=== PATIENT | male | born 1955 | race Caucasian/White ===

== ENCOUNTER 2022-06-16 13:36 | Emergency (ER) | payer MEDICARE, MEDICAID, SELFPAY ==
[2022-06-16] VITALS (9 sets, daily range): BP systolic 113–123; BP diastolic 68–76; PULSE 86–94; RESP 18–20; TEMP 36.6; O2SAT 96–99
--- NOTE | 2022-06-16 13:54 | DI.RAD.S_ITS ---
PROCEDURE: XR CHEST 2V INDICATIONS: Short of breath/wheezing TECHNIQUE: 2 views of the chest were acquired. COMPARISON: None. FINDINGS: Surgical changes and devices: None. Lungs and pleura: Lungs are clear. No pleural effusions or pneumothorax. Mediastinum: The cardiac contours are within normal limits. The aorta demonstrates calcification and tortuosity. Bones and chest wall: No suspicious bony abnormalities. Soft tissues appear unremarkable. IMPRESSION: Plain film study within normal limits for age. No focal infiltrates are seen. Dictated by: Олег Cota M.D. on 06/16/2022 at 13:26 Approved by: Олег Cota M.D. on 06/16/2022 at 13:27
--- NOTE | 2022-06-16 14:06 | ED_ITS ---
HPI - SOB/Dyspnea <ARMIN Espinosa - Last Filed: 06/16/22 18:14> General Chief Complaint: Shortness of Breath/Dyspnea Stated Complaint: Cough, body aches, wheezing Time Seen by Provider: 06/16/22 13:53 Source: family Mode of arrival: Family Vehicle Limitations: other History of Present Illness HPI Narrative: This is a 67-year-old male who presents to the emergency department complaining of cough, body aches, wheezing for the last 2 days and is concerned for illness. He denies any nausea or vomiting. He states that he feels hot and cold but denies measured fever. Patient is a smoker states that he feels like he is wheezing and having worsening body aches. Denies taking a COVID test yet. Denies history of COPD or wheezing. Denies any nausea vomiting, chills, changes to his urine or his stool. Related Data Previous Rx's Medication Instructions Recorded albuterol sulfate 90 mcg/actuation 1 inh inhalation Q6H PRN shortness 06/16/22 aerosol inhaler of breath or wheezing #6.7 grams Allergies Allergy/AdvReac Type Severity Reaction Status Date / Time No Known Drug Allergies Allergy Verified 04/12/20 15:40 Review of Systems <ARMIN Espinosa - Last Filed: 06/16/22 18:14> Review of Systems Narrative: Review of systems is negative for acute abnormalities unless otherwise noted in HPI Patient History <ARMIN Espinosa - Last Filed: 06/16/22 18:14> Medical History (Updated 06/16/22 @ 15:48 by ARMIN Espinosa) Basal cell carcinoma (BCC) of brow History of developmental delay (~195) Family History Father Diabetes mellitus History of heart disease Stroke Hyperlipidemia Hypertension Mother Diabetes mellitus History of heart disease Hyperlipidemia Hypertension Stroke Social History Smoking Status: Current every day smoker Smoking Status: Current every day smoker alcohol intake frequency: 0-2 drinks per day Substance Use Type: does not use Exam <ARMIN Espinosa - Last Filed: 06/16/22 18:14> Narrative Exam Narrative: Reviewed vitals signs and nursing notes. General: cooperative, comfortable, in no acute distress, well groomed HEENT: symmetrical facial expressions, moist mucous membranes Cardiovascular: regular rate and rhythm, no peripheral edema, warm extremities Respiratory: normal effort, dry cough, sounds hoarse, intermittent wheeze left lower lobe able to speak in complete sentences, without wheezing, stridor, or abnormal breath sounds. No retractions or tachypnea. GI: abdomen soft, nontender to palpation, nondistended, without masses, rebound tenderness or exquisite tenderness with exam. No CVA tenderness MSK: moves all extremities, neurovascularly intact, no weakness, normal tone Skin: brisk capillary refill, without pallor or erythema Neuro: normal speech and cognition, A&O x3, ambulatory, clear speech Psych: mental status is grossly normal, congruent mood, normal affect, pleasant and cooperative Initial Vital Signs Initial Vital Signs: Vital Signs Pulse Rate 91 H 06/16/22 13:44 Blood Pressure 123/76 06/16/22 13:44 Pulse Oximetry 99 06/16/22 13:44 Oxygen Delivery Method 06/16/22 13:44 <Levar Finn DO - Last Filed: 06/16/22 18:18> Initial Vital Signs Initial Vital Signs: Vital Signs Pulse Rate 91 H 06/16/22 13:44 Blood Pressure 123/76 06/16/22 13:44 Pulse Oximetry 99 06/16/22 13:44 Oxygen Delivery Method 06/16/22 13:44 Course <ARMIN Espinosa - Last Filed: 06/16/22 18:14> Orders Ordered: ED Orders 06/16/22 13:54 Chest [XR chest 2V] Stat RT Consult Eval and Treat NOW 06/16/22 14:10 Covid-19 + FLU A/B + RSV - PCR Stat 06/16/22 16:07 Urine Microscopic Stat Discontinued Medications Albuterol (Albuterol Hfa Prepack) 1 box MISC SEEINSTR ONE Stop: 06/16/22 15:49 Last Admin: 06/16/22 16:18 Dose: 1 box Documented By: WILNER Albuterol/Ipratropium (Albuterol/Ipratropium 3 Ml Ampul) 3 ml INH NOW ONE Stop: 06/16/22 14:14 Last Admin: 06/16/22 14:19 Dose: 3 ml Documented By: WILNER Vital Signs Vital signs: Vital Signs - 8 hr 06/16/22 13:51 06/16/22 14:19 06/16/22 13:44 Temperature 97.9 F Pulse Rate 90 92 H Respiratory Rate 20 18 Blood Pressure 123/76 123/76 Pulse Oximetry 99 96 Oxygen Delivery Method Room Air Room Air 06/16/22 13:44 06/16/22 14:00 06/16/22 14:30 Temperature Pulse Rate 91 H 91 H 90 Respiratory Rate Blood Pressure Pulse Oximetry 99 98 97 Oxygen Delivery Method Room Air Room Air Room Air 06/16/22 15:00 06/16/22 15:30 06/16/22 16:00 Temperature Pulse Rate 89 86 94 H Respiratory Rate 20 Blood Pressure Pulse Oximetry 97 96 97 Oxygen Delivery Method Room Air Room Air Room Air 06/16/22 16:21 Temperature Pulse Rate Respiratory Rate Blood Pressure 113/68 Pulse Oximetry Oxygen Delivery Method <Levar Finn DO - Last Filed: 06/16/22 18:18> Orders Ordered: ED Orders 06/16/22 13:54 Chest [XR chest 2V] Stat RT Consult Eval and Treat NOW 06/16/22 14:10 Covid-19 + FLU A/B + RSV - PCR Stat 06/16/22 16:07 Urine Microscopic Stat Discontinued Medications Albuterol (Albuterol Hfa Prepack) 1 box MISC SEEINSTR ONE Stop: 06/16/22 15:49 Last Admin: 06/16/22 16:18 Dose: 1 box Documented By: WILNER Albuterol/Ipratropium (Albuterol/Ipratropium 3 Ml Ampul) 3 ml INH NOW ONE Stop: 06/16/22 14:14 Last Admin: 06/16/22 14:19 Dose: 3 ml Documented By: WILNER Vital Signs Vital signs: Vital Signs - 8 hr 06/16/22 13:51 06/16/22 14:19 06/16/22 13:44 Temperature 97.9 F Pulse Rate 90 92 H Respiratory Rate 20 18 Blood Pressure 123/76 123/76 Pulse Oximetry 99 96 Oxygen Delivery Method Room Air Room Air 06/16/22 13:44 06/16/22 14:00 06/16/22 14:30 Temperature Pulse Rate 91 H 91 H 90 Respiratory Rate Blood Pressure Pulse Oximetry 99 98 97 Oxygen Delivery Method Room Air Room Air Room Air 06/16/22 15:00 06/16/22 15:30 06/16/22 16:00 Temperature Pulse Rate 89 86 94 H Respiratory Rate 20 Blood Pressure Pulse Oximetry 97 96 97 Oxygen Delivery Method Room Air Room Air Room Air 06/16/22 16:21 Temperature Pulse Rate Respiratory Rate Blood Pressure 113/68 Pulse Oximetry Oxygen Delivery Method MDM - SOB/Dyspnea <Remedios Toussaint BUILD TECHNICIAN - Last Filed: 06/16/22 18:14> Lab Data Labs: Lab Results 06/16/22 06/16/22 Range/Units 14:10 16:07 Urine RBC 1-5/hpf (0-5/HPF) Urine WBC 1-5/hpf (0-5/HPF) Urine Bacteria None seen (None) Urine Mucus 1+ H (Negative) Ur Culture Indicated? Cult not indicated SARS-CoV-2 (PCR) Negative (Negative) Influenza A (RT-PCR) Flu a negative (NEGATIVE) Influenza B (RT-PCR) Flu b negative (NEGATIVE) RSV (PCR) Negative (Negative) Urine Dip Bedside Urine Glucose 100 mg/dl Bedside Urine Bilirubin - Negative Bedside Urine Ketone - Negative Urine Specific Osteen 1.020 Bedside Urine Occult Blood - Negative Bedside Urine pH 6.0 Bedside Urine Protein +/- 15 Bedside Urine Urobilinogen 2+ 4mg Bedside Urine Nitrite - Negative Bedside Urine Leukocytes - Negative Esterase Imaging Data Chest x-ray: Radiologist's Impression: PROCEDURE:? XR CHEST 2V ? INDICATIONS:? Short of breath/wheezing ? TECHNIQUE:? 2 views of the chest were acquired.? ? COMPARISON:? None. ? FINDINGS:? ? Surgical changes and devices:? None.? ? Lungs and pleura:? Lungs are clear.? No pleural effusions or pneumothorax.? ? Mediastinum:? The cardiac contours are within normal limits. The aorta demonstrates calcification and tortuosity. ? Bones and chest wall:? No suspicious bony abnormalities.? Soft tissues appear unremarkable.? IMPRESSION:? ? Plain film study within normal limits for age.? No focal infiltrates are seen. ? ? Dictated by: Олег Cota M.D. on 06/16/2022 at 13:26 ? ? Approved by: Олег Cota M.D. on 06/16/2022 at 13:27 ? [place] Narrative Medical decision making narrative: This is a 67-year-old male who presents to the emergency department with cough, wheezing, body aches, and fatigue for the last 2 days. He is a smoker, denies history of heart or lung conditions. Patient had expiratory wheeze with coughing and horse, dry cough. He was not hypoxic, did not have tachypnea or accessory muscle use. He was afebrile, breath sounds initially were clear but diminished, he had 1 nebulizer of albuterol and had improved aeration, patient states that he felt like he was breathing better afterwards. He had less coughing. He was given an MDI inhaler for his symptoms, his COVID, influenza and RSV PCR was negative. Encouraged him to continue testing if his symptoms progress. Return to the emergency department for shortness of breath, weakness, productive cough or fever and chills. Patient states understanding, discouraged smoking while feeling ill. Encouraged hydration and rest. His urine was negative for infection as well, chest x-ray does not show any focal infiltrates or acute cardiopulmonary abnormality. Patient is appropriate and amenable to discharge home. Vital signs are stable on repeat examination is unremarkable. Patient has been informed of results. Patient has been given strict return to ER precautions for any new or worsening symptoms. Patient understands to follow up closely with outpatient providers as instructed. Patient understands plan and agrees to discharge home. All questions and concerns answered at this time. <Levar Finn, DO - Last Filed: 06/16/22 18:18> Lab Data Labs: Lab Results 06/16/22 06/16/22 Range/Units 14:10 16:07 Urine RBC 1-5/hpf (0-5/HPF) Urine WBC 1-5/hpf (0-5/HPF) Urine Bacteria None seen (None) Urine Mucus 1+ H (Negative) Ur Culture Indicated? Cult not indicated SARS-CoV-2 (PCR) Negative (Negative) Influenza A (RT-PCR) Flu a negative (NEGATIVE) Influenza B (RT-PCR) Flu b negative (NEGATIVE) RSV (PCR) Negative (Negative) Urine Dip Bedside Urine Glucose 100 mg/dl Bedside Urine Bilirubin - Negative Bedside Urine Ketone - Negative Urine Specific Osteen 1.020 Bedside Urine Occult Blood - Negative Bedside Urine pH 6.0 Bedside Urine Protein +/- 15 Bedside Urine Urobilinogen 2+ 4mg Bedside Urine Nitrite - Negative Bedside Urine Leukocytes - Negative Esterase Discharge Plan Departure Patient Disposition: Home Clinical Impression: Acute upper respiratory infection Instructions: DI for Acute Bronchitis, DI for Viral Upper Respiratory Infection -- Adult Activity Restrictions/Additional Instructions: *You have been diagnosed with an upper respiratory infection causing your cough and wheeze, this is likely a viral illness but was not COVID, influenza or RSV. Please stay hydrated, drink plenty of water throughout the day, do not over exert yourself, take Tylenol and ibuprofen as needed for fever or feeling ill. Come back for any worsening of your symptoms. Use albuterol every 4 hours as needed for wheezing or shortness of breath if you find yourself using it more often than every 4 hours please come back to the emergency department for another evaluation, that means you may be getting sicker. I hope you feel better soon and I am glad that you came in today. *What to do: *Please continue to take your regular medications as directed. [x ] New medication prescriptions sent to your pharmacy: [ [facility] [ ] New medication written as a paper prescription [ ] No new medications given *Please follow up with your primary care provider in 2-3 days, call for an appointment. Let them know you were seen in the Emergency Department and that we asked that you be seen for follow-up. We will electronically transmit a record of today's note if your PCP is in our system *If you do not have a primary care provider please contact [phone] to [facility] with one of the [facility] primary care providers. *Return to Emergency Department if you should have any new, worsening, or concerning symptoms, such as [fever greater than 101F, chills, worsening pain, persistent vomiting or other bothersome symptoms]. Prescriptions: New albuterol sulfate 90 mcg/actuation HFA aerosol inhaler 1 inh inhalation Q6H PRN (Reason: shortness of breath or wheezing) Qty: 6.7 0RF Visit Report Forms: Patient Portal/API <Levar Finn DO - Last Filed: 06/16/22 18:18> [facility] Dr Finn Co-Sign Statement: I was available for consultation during this patient's emergency department visit. This chart is signed by myself for administrative purposes only. I did not have direct contact with this patient during this visit. They were seen independently by the APC.
[2022-06-16] MEDS: ALBUTEROL/IPRATROPIUM 3 ML AMPUL INH (14:19)
--- NOTE | 2022-06-16 14:47 | RT ---
Pt states better air exchange, no distress noted and on room air.
[2022-06-16 15:18] LABS: Influenza A - CEPHEID Flu A NEGATIVE (NEGATIVE); Influenza B - CEPHEID Flu B NEGATIVE (NEGATIVE); Respiratory Syncytial Virus Negative (Negative)
[2022-06-16 15:25] LABS: COVID-19 CEPHEID PCR (VTM/NP) Negative (Negative)
[2022-06-16] MEDS: ALBUTEROL HFA PREPACK 1 BOX MISC (16:18)
[2022-06-16 16:34] LABS: Bacteria Urine None Seen; Culture Indicated Urine Cult Not Indicated; Mucus Urine 1+ (Negative); RBC Urine 1-5/HPF (0-5/HPF); WBC Urine 1-5/HPF (0-5/HPF)
== END 2022-06-16 16:25 | disposition home or self-care (01) ==
PROVIDERS: Emergency Provider Nurse Practitioner Critical Care Medicine
DX: J06.9 Acute upper respiratory infection, unspecified (principal); R06.02 Shortness of breath; Z20.822 Contact with and (suspected) exposure to COVID-19
CPT/HCPCS: 0241U; 71046; 81003; 81015; 94640; 99283; 99284

== ENCOUNTER → 2025-06-15 08:31 | Outpatient (CLI) | payer MEDICARE, MEDICAID, SELFPAY ==
[2025-06-15 09:12] LABS: Add Manual Diff / Slide Review NO; Hematocrit 43.7 % (41-53); Hemoglobin 15.1 g/dL (13.5-17.5); Lymphocytes Absolute Auto 1600 /uL (1100-4500); Mean Corpuscular HGB Conc 34.5 % (30-36); Mean Corpuscular Hemoglobin 31.4 PG (26-34); Mean Corpuscular Volume 90.9 fL (80-100); Platelet Count 203 X10^3/uL (150-400)
[2025-06-15 09:31] LABS: Alanine Aminotransferase 13 IU/L (<50); Albumin 4.1 g/dL (3.5-5.0); Albumin Globulin Ratio 1.4 (1.0-2.8); Alkaline Phosphatase 60 U/L (38-126); Blood Urea Nitrogen 22 mg/dL (9-20); Calcium 9.4 mg/dL (8.4-10.2); Carbon Dioxide 28 mmol/L (22-32); Chloride 102 mmol/L (98-107); Estimated Glomerular Filt Rate > 60 mL/min (>60); Globulin 3.0 g/dL (1.7-4.1); Glucose 92 mg/dL (70-99); HEMOLYSIS < 15 (0-50); Potassium 4.1 mmol/L (3.4-5.1); Sodium 137 mmol/L (137-145); Total Protein 7.1 g/dL (6.3-8.2)
== END ==
PROVIDERS: PCP Family Medicine; Referring Provider Family Medicine; Visit Provider Family Medicine
DX: J44.9 Chronic obstructive pulmonary disease, unspecified (principal); Z12.5 Encounter for screening for malignant neoplasm of prostate; Z00.00 Encounter for general adult medical examination without abnormal findings
CPT/HCPCS: 36415; 80053; 85025; G0103

== ENCOUNTER → 2025-06-18 11:46 | Outpatient (CLI) | payer MEDICARE, MEDICAID, SELFPAY ==
--- NOTE | 2025-06-18 | DI.RAD.S_ITS ---
PROCEDURE: XR CHEST 2V INDICATIONS: CHRONIC COUGH TECHNIQUE: 2 views of the chest were acquired. COMPARISON: [facility], CR, XR CHEST 2V, 06/16/2022, 14:13. FINDINGS: Heart, mediastinum and pulmonary vascular: Heart is normal in size and configuration. Mediastinum is unremarkable. Pulmonary vascular is normal. Lungs: Clear Pleural spaces: Normal-no effusions or pneumothorax. Bones and soft tissues: Moderate pectus excavatum deformity slight accentuates the heart size and right basilar pulmonary vasculature IMPRESSION: No acute cardiopulmonary disease. Moderate pectus excavatum Dictated by: Vinicio Chaney M.D. on 06/19/2025 at 6:38 Approved by: Vinicio Chaney M.D. on 06/19/2025 at 6:39
== END ==
PROVIDERS: PCP Family Medicine; Referring Provider Family Medicine; Visit Provider Family Medicine
DX: J43.1 Panlobular emphysema (principal); M95.4 Acquired deformity of chest and rib
CPT/HCPCS: 71046